=== PATIENT | female | born 1985 | race Caucasian/White ===

== ENCOUNTER 2017-10-05 15:11 | Emergency (ER) | payer OTHER ==
[~2017-10-05] VITALS: Ht 157.5 cm; Wt 65.6 kg
[2017-10-05 17:13] LABS: HEMATOCRIT 42.2 % (34.6-47.8); HEMOGLOBIN 14.2 g/dL (11.7-16.4); WHITE BLOOD COUNT 10.3 x10^3/uL (3.4-10)
[2017-10-05 17:26] LABS: BLOOD UREA NITROGEN 4 mg/dL (7-18)
[2017-10-05] MEDS ORDERED: PREN1TAB28 PO (18:29)
[2017-10-05 19:29] VITALS: BP 106/49
== END 2017-10-05 19:35 | disposition home or self-care (01) ==
LOC: ED 19:29
DX: O20.0 Threatened abortion (principal); Z3A.01 Less than 8 weeks gestation of pregnancy
CPT/HCPCS: 36415; 76801; 80048; 81001; 82040; 84702; 85025; 86901; 99285